=== PATIENT | male | born 1980 | race American Indian/Alaskan Native ===

== ENCOUNTER 2017-05-06 00:28 | Emergency (ER) | payer OTHER ==
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
[2017-05-06] MEDS ORDERED: MOTRIN PO ONE (08:33)
[2017-05-06 09:29] VITALS: BP 138/95
== END 2017-05-06 09:21 | disposition home or self-care (01) ==
LOC: ED 00:28
DX: M54.2 Cervicalgia (principal); V89.2XXA Person injured in unspecified motor-vehicle accident, traffic, initial encounter; Y93.89 Activity, other specified; Y99.8 Other external cause status; Y92.410 Unspecified street and highway as the place of occurrence of the external cause
CPT/HCPCS: 99282